=== PATIENT | female | born 1955 | race Caucasian/White ===

== ENCOUNTER 2017-09-29 12:27 | Inpatient (IN) ==
[2017-09-29] MEDS ORDERED: 0.9 % Sodium Chloride 1,000 ML IVC ONE (12:58)
[2017-09-29] MEDS ORDERED: methylPREDNISolone 125 MG/2 ML VIAL IVP ONE (12:58)
[2017-09-29] MEDS ORDERED: Ipratropium/Albuterol Neb 3 ML ONE (12:59)
--- NOTE | 2017-09-29 13:05 | Emergency Department Note ---
Disposition Clinical Impression: COPD exacerbation Lung cancer Qualifiers: Laterality: unspecified laterality Lung location: unspecified part of lung Qualified Code(s): C34.90 - Malignant neoplasm of unspecified part of unspecified bronchus or lung Disposition: Admitted As Inpatient Condition: Fair Referrals: NONE,PCP [Primary Care Provider] - Osei Tinsley [Family Provider] - Forms: ED Satisfaction Letter Time of Disposition: 14:39 Arrhythmia/Palpitations HPI - General Chief Complaint: ED Arrhythmia/Palpitations Stated Complaint: Tachy Time Seen by Provider: 09/29/17 12:39 Source: patient, family Mode of arrival: ambulatory Limitations: no limitations Nursing Notes Reviewed: Yes Vital Signs Reviewed: Yes - History of Present Illness HPI Narrative: 62-year-old female with history of chronic smoking as well as recent diagnosis of lung cancer presents for evaluation of tachycardia. Patient states she has been having worsening dyspnea. Patient was recently diagnosed with lung cancer yesterday. She had recent hospitalization. Patient denies any chest pain. Patient states that she has not been needing oxygen. Patient denies any fevers or cough. Patient denies any abdominal pain. No nausea vomiting. - Related Data Home Medications Medication Instructions Recorded Confirmed Fluticasone/Vilanterol [Breo 1 puff IH DAILY 09/20/17 09/28/17 Ellipta 200-25 Mcg INH] Mometasone/Formoterol [Dulera 200 2 puff IH BID 09/20/17 09/28/17 Mcg/5 Mcg Inhaler] Previous Rx's Medication Instructions Recorded Budesonide/Formoterol 160/4.5 2 puff IH BIDR #1 inhaler 09/24/17 [Symbicort 160/4.5] Ipratropium/Albuterol Sulfate 1 puff IH QID PRN #1 mist.inhal 09/24/17 [Combivent Respimat Inhal [place]] Losartan/HCTZ [Hyzaar 50-12.5 2 each PO DAILY #60 tablet 09/24/17 Tablet] levoFLOXacin [Levaquin] 750 mg PO DAILY #4 tablet 09/24/17 predniSONE [PredniSONE] 40 mg PO DAILY #5 tablet 09/24/17 Nicotine Patch [Nicoderm] 1 patch TD DAILY #21 patch.[id number] 09/28/17 Allergies Allergy/AdvReac Type Severity Reaction Status Date / Time No Known Allergies Allergy Verified 09/19/17 15:28 All systems ED: reviewed and negative except as stated. Constitutional: Reports: as per HPI. Denies: fever Eyes: Reports: as per HPI ENT ED: Reports: as per HPI Cardiovascular: Reports: as per HPI. Denies: chest pain Respiratory: Reports: as per HPI, dyspnea. Denies: cough Gastrointestinal: Reports: as per HPI. Denies: abdominal pain, nausea, vomiting Genitourinary: Reports: as per HPI Musculoskeletal: Reports: as per HPI Integumentary: Reports: as per HPI Neurological: Reports: as per HPI Psychiatric: Reports: as per HPI Endocrine: Reports: as per HPI Hematological/Lymphatic: Reports: as per HPI Past Medical History - Past Medical History Medical history: Reports: cancer, COPD, hypertension, other Psychiatric history: Reports: anxiety, depression - Social History Smoking Status: Current every day smoker Smokeless Tobacco Status: No Alcohol use: Reports: none Drug use: Reports: none Physical Exam - General Limitations: no limitations General appearance: alert, in distress, cachectic - Head Head exam: atraumatic, normocephalic, normal inspection - Eye Eye exam: Present: normal appearance, PERRL, EOMI - ENT ENT exam: normal exam, mucous membranes moist - Neck Neck exam: Present: normal inspection, trachea midline - Chest Chest inspection: Present: normal inspection, symmetric chest wall rise - Respiratory Respiratory exam: Present: respiratory distress, accessory muscle use (Pursed lip breathing), prolonged expiratory phase, other (Diffusely decreased breath sounds) - Cardiovascular Cardiovascular exam: Present: normal rhythm, tachycardia. Absent: systolic murmur - Abdominal Exam Abdominal exam: Present: soft, Non-Tender - Extremities Exam Extremities exam: Present: normal inspection. Absent: pedal edema - Back Exam Back exam: Present: normal inspection, full ROM. Absent: tenderness - Neurological Exam Neurological exam: Present: alert, oriented X3 - Skin Skin exam: Present: warm, dry, intact, normal color Course Course Narrative: Patient seen and examined. Patient appears to be in moderate distress with respiratory breathing. The patient had diffusely decreased lung sounds. Patient received several nebs as well as steroids. Patient also placed on BiPAP. Patient's tachycardia likely related to her increased work of breathing. However PE has not been officially ruled out. Patient will need to get a CTA of the chest. - Reevaluation(s) Reevaluation #1: Patient does have increased air movement. Time: 14:38 Reevaluation #2: She did have a blood gas prior to BiPAP placement and was reviewed and she was normal. Time: 14:44 Vital Signs Temperature 98.4 F 09/29/17 12:32 Pulse Rate 123 09/29/17 12:32 Respiratory Rate 18 09/29/17 12:32 Blood Pressure 132/71 09/29/17 12:32 O2 Sat by Pulse Oximetry 97 09/29/17 12:32 Temperature 98.4 F 09/29/17 12:32 Pulse Rate 123 09/29/17 13:35 Respiratory Rate 26 09/29/17 15:10 Blood Pressure 138/67 09/29/17 15:10 O2 Sat by Pulse Oximetry 98 09/29/17 15:10 Oxygen Delivery Oxygen Delivery Aerosol Mask Arrhythmia/Palpitations - [facility] Narrative Medical decision making narrative: 62-year-old female with history of tobacco use and COPD presents for tachycardia and dyspnea. Patient was recently diagnosed with lung cancer yesterday. Patient is not currently undergoing chemotherapy or modalities. Patient notes worsening dyspnea. Patient did have increased work of breathing. Patient will be admitted to the hospital service for further motion monitoring. Patient will need a CT of the chest to rule out pulmonary PE. - Lab Data Lab results reviewed: Yes I reviewed the patient's lab results. Result diagrams: 09/29/17 12:50 09/29/17 12:50 Lab Results 09/29/17 09/29/17 09/29/17 Range/Units 12:50 12:50 12:50 WBC 7.4 (4.3-11.1) K/mcL RBC 4.96 (3.82-4.97) M/mcL Hgb 15.5 H (11.5-15.4) g/dL Hct 46.2 H (35.3-44.9) % MCV 93.1 (83.0-100.0) fL MCH 31.3 (28.0-33.3) pg MCHC 33.5 (31.6-35.5) g/dL RDW 13.3 (11.5-14.5) % Plt Count 342 (140-400) K/mcL MPV 8.7 L (9.4-12.4) fL Seg Neutrophils % 66.0 % Lymphocytes % 16.0 % Monocytes % 18.0 % Neutrophils # 4.9 (1.6-8.9) K/mcL Lymphocytes # 1.2 (0.6-4.6) K/mcL Monocytes # 1.3 (0.0-1.3) K/mcL Platelet Estimate Normal (Normal) Target Cells 1+ A (Not Present) ABG pH (7.32-7.45) pH Units ABG pCO2 (35-45) mmHg ABG pO2 (85-104) mmHg ABG HCO3 (21-27) mEq/L ABG Total CO2 (20-26) mEq/L ABG O2 Saturation (95-98) % ABG Base Excess (-2 to 3) mEq/L O2 Delivery Device Inspired O2 (1-15=lpm [id number]=%) Sodium 133 L (136-145) mEq/L Potassium 3.6 (3.5-5.1) mEq/L Chloride 93 L (98-107) mEq/L Carbon Dioxide 32 H (23-29) mEq/L BUN 17 (8-23) mg/dL Creatinine 0.51 L (0.60-1.20) mg/dL Est GFR ( Amer) > 60 (> 60) Est GFR (Non-Af Amer) > 60 (> 60) BUN/Creatinine Ratio 33 H (6-26) Glucose 90 (70-105) mg/dL Calculated Osmolality 277 L (280-300) Calcium 9.1 (8.6-10.3) mg/dL Troponin I (< 0.04) ng/mL B-Natriuretic Peptide 23 (Less than 100) pg/mL 09/29/17 09/29/17 Range/Units 12:50 14:41 WBC (4.3-11.1) K/mcL RBC (3.82-4.97) M/mcL Hgb (11.5-15.4) g/dL Hct (35.3-44.9) % MCV (83.0-100.0) fL MCH (28.0-33.3) pg MCHC (31.6-35.5) g/dL RDW (11.5-14.5) % Plt Count (140-400) K/mcL MPV (9.4-12.4) fL Seg Neutrophils % % Lymphocytes % % Monocytes % % Neutrophils # (1.6-8.9) K/mcL Lymphocytes # (0.6-4.6) K/mcL Monocytes # (0.0-1.3) K/mcL Platelet Estimate (Normal) Target Cells (Not Present) ABG pH 7.38 (7.32-7.45) pH Units ABG pCO2 44 (35-45) mmHg ABG pO2 81 L (85-104) mmHg ABG HCO3 26 (21-27) mEq/L ABG Total CO2 27 H (20-26) mEq/L ABG O2 Saturation 96 (95-98) % ABG Base Excess 1 (-2 to 3) mEq/L O2 Delivery Device Cannula Inspired O2 2.0 (1-15=lpm [id number]=%) Sodium (136-145) mEq/L Potassium (3.5-5.1) mEq/L Chloride (98-107) mEq/L Carbon Dioxide (23-29) mEq/L BUN (8-23) mg/dL Creatinine (0.60-1.20) mg/dL Est GFR ( Amer) (> 60) Est GFR (Non-Af Amer) (> 60) BUN/Creatinine Ratio (6-26) Glucose (70-105) mg/dL Calculated Osmolality (280-300) Calcium (8.6-10.3) mg/dL Troponin I < 0.03 (< 0.04) ng/mL B-Natriuretic Peptide (Less than 100) pg/mL - Radiology Data Radiology results reviewed: Yes I reviewed the patient's radiology results. Chest X-Ray 09/29/17 12:57 IMPRESSION: No significant interval change. Stable opacities in the upper lobes. The larger opacity in the right upper lobe was recently biopsied. D/ / Akin Frias MD / Akin Frias MD Interpreting Provider: Akin Frias MD - EKG Data EKG attestation: Yes I reviewed and interpreted this EKG. EKG shows normal: sinus rhythm Rate: tachycardia Rhythm: NSR [place]/QRS: normal P waves: FAY T wave inversions noted in: aVR, v1, v2 Interpretation: no acute changes S.B.A.R. - Laureen Situation: Demographics Background: Presenting Complaint Assessment: Vital Signs, Course and respsone to treatment, Patient/Family Expectation Recommendation: Barrier(s) to disposition, Recommendation based on pending studies, treatments, or consults Laureen Report Given to: Dr. Shirley Garduno Repor Time: 14:35 Attestation Statement - Attestation Attestation: I examined this patient and my medical decision-making was reviewed with the Resident Physician. I agree with the documented findings, disposition and treatment plan as described except to the extent set forth below. 62-year-old female sent emergency room by her short goods drier due to rapid heart rate. She was recently found to have a pulmonary nodule and diagnosed with adenocarcinoma of the right upper lobe. She had biopsy confirming this.. She was being seen by the short goods drier today and had increased heart rate prompting them to send her to the ED. She denies any pain. She tries to deny dyspnea but person with her reports she has had increasing dyspnea over the recent days. No fevers or chills. Cachectic female who appears much more than her stated age. He is membranes are dry. Neck is supple. No JVD. Chest with markedly diminished breath sounds all lung gonzales. No focal rhonchi. Cardiac exam is tachycardic, regular. Chest wall is nontender. Abdomen soft nondistended nontender. Extremities warm and dry without edema. No calf tenderness. She was given sequential DuoNeb treatments with some improvement of her respiratory rate. However, the tachycardia today. She was sent for CT of her chest which was negative for PE or focal infiltrate. She was ultimately placed on BiPAP with further improvement and admitted to the hospital. The high probability of a clinically significant, sudden or life threatening deterioration of the [cardiopulmonary] system(s) required my full and direct attention, intervention and personal management. The aggregate critical care time was [15] minutes. This time is in addition to time spent performing reported procedures but includes the following: [x] Data Review and interpretation [x] Patient assessment and monitoring of vital signs [x] Documentation [x] Medication orders and management
[2017-09-29 13:08] LABS: Hematocrit 46.2 % (35.3-44.9); Hemoglobin 15.5 g/dL (11.5-15.4); Mean Corpuscular HGB Conc 33.5 g/dL (31.6-35.5); Mean Corpuscular Hemoglobin 31.3 pg (28.0-33.3); Mean Corpuscular Volume 93.1 fL (83.0-100.0); Mean Platelet Volume 8.7 fL (9.4-12.4); Platelet Count 342 K/mcL (140-400); Red Blood Count 4.96 M/mcL (3.82-4.97); Red Cell Distribution Width 13.3 % (11.5-14.5)
[2017-09-29] MEDS: Ipratropium/Albuterol Neb 3 ML IH ONE ×2 (13:19→13:30)
[2017-09-29 13:43] LABS: BUN/Creatinine Ratio 33 (6-26); Blood Urea Nitrogen 17 mg/dL (8-23); Calcium 9.1 mg/dL (8.6-10.3); Carbon Dioxide 32 mEq/L (23-29); Chloride 93 mEq/L (98-107); Glucose 90 mg/dL (70-105); Osmolality,Calculated 277 (280-300); Potassium 3.6 mEq/L (3.5-5.1); Sodium 133 mEq/L (136-145); eGFR For African Americans > 60 (> 60); eGFR For Non-African Americans > 60 (> 60)
[2017-09-29 13:55] LABS: Lymphocytes # 1.2 K/mcL (0.6-4.6); Monocytes # 1.3 K/mcL (0.0-1.3); Neutrophils # 4.9 K/mcL (1.6-8.9); Platelet Estimate Normal (Normal)
[2017-09-29 13:56] LABS: Target Cells 1+ (Not Present)
[2017-09-29] MEDS ORDERED: Albuterol 2.5 MG/3 ML NEBULIZER IH ONE (14:16)
[2017-09-29 14:46] LABS: ABG Base Excess 1 mEq/L (-2 to 3); ABG HCO3 26 mEq/L (21-27); ABG Oxygen Saturation 96 % (95-98); ABG PCO2 44 mmHg (35-45); ABG PH 7.38 pH Units (7.32-7.45); ABG PO2 81 mmHg (85-104); ABG TCO2 27 mEq/L (20-26)
[2017-09-29] MEDS ORDERED: Naloxone 0.4 MG/ML INJ IVP PRN (16:30)
--- NOTE | 2017-09-29 17:13 | Internal Med History&Physical ---
<Maryan Bui - Last Filed: 09/29/17 17:01> Date of Encounter: 09/29/17 Time of Encounter: 17:02 Assessment and Plan (1) COPD with acute exacerbation Status: Acute 62-year-old female presented to the emergency room with acute exacerbation of COPD with underlying right lung mass positive for cancer. She is a smoker who recently stopped. 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 Oseguera is a 62 year old female who was sent to the ER for evaluation of tachycardia and shortness of breath from the pulmonologists office. The patient was admitted here from 09/19/17-09/24/17 with exacerbation of COPD. The patient is sitting up on the stretcher with respiratory treatment on board. Patient is having difficulty speaking in full sentences. Her significant other is at the bedside and supplied a lot of information regarding history of present illness. The patient was recently diagnosed with a right lung cancerous lesion. She also has a history of COPD / emphysema and hepatitis B. She was seen at the [facility] yesterday. A 6 minute walk test was performed there and she was ordered home oxygen which has not been delivered. She was at the pulmonologists office today for hospitial f/u and when she started to walk her heart rate was found to be in the high 130s and she became profoundly short of breath, so was sent to the ED. She also has a nebulizer ordered but it has not been delivered. The patient is a cigarette smoker and has smoked most of her life. She quit . She denies chest pain, fever , chills, syncope, abdominal pain, changes in bowel or bladder. She states she weighs approximately 58 pounds and has been losing weight steadily over the past several months. Her significant other states that she has not been eating very much. I spoke with Dr. Watson and the ER physician regarding disposition. Discussed with the patient and her significant other. They are in agreement with the plan of admission. Discussed CODE STATUS. The patient states that she wants to try all treatments but does not want to be on a ventilator or machine long-term. Past Med Surg Social Fam HX - Past Medical History Source: patient Medical history: cancer, COPD, hypertension, other Psychiatric history: anxiety, depression - Social History Smoking Status: Current every day smoker Smokeless Tobacco Status: No Alcohol use: none Drug use: none Occupational status: retired Current living situation: Home - Independent, With Family Activity Level: Independent ambulation - Additional Family History Additional family history: Dad at age 42 with an accident, brother from cirrhosis of the liver, mother alive at age 78 with some cardiac problems Internal Medicine - H&P: Meds Fluticasone/Vilanterol [Breo Ellipta 200-25 Mcg INH] 1 puff IH DAILY 09/20/17 [ History] Budesonide/Formoterol 160/4.5 [Symbicort 160/4.5] 2 puff IH BIDR #1 inhaler 02/04 [Rx] Ipratropium/Albuterol Sulfate [Combivent Respimat Inhal [place]] 1 puff IH QID PRN #1 mist.inhal 09/24/17 [Rx] Losartan/HCTZ [Hyzaar 50-12.5 Tablet] 2 each PO DAILY #60 tablet 09/24/17 [Rx] Nicotine Patch [Nicoderm] 14 mg TD DAILY 09/29/17 [History] Ipratropium/Albuterol Neb [Duoneb] 3 ml IH K2HCVYM PRN #50 inhsol 10/01/17 [Rx] Melatonin 1.5 mg PO HS PRN #30 tablet 10/01/17 [Rx] levoFLOXacin [Levaquin] 750 mg PO DAILY #5 tablet 10/01/17 [Rx] predniSONE [PredniSONE] 40 mg PO DAILY #18 tablet 10/01/17 [Rx] 3 Allergy/AdvReac Type Severity Reaction Status Date / Time No Known Allergies Allergy Verified 09/19/17 15:28 All Systems PM: A 10-system review of systems was performed and is negative for pertinent findings except as documented above in the HPI. - Constitutional Constitutional: fatigue, weakness, weight loss, no chills, no fever(s), no night sweats - EENT Eyes: no change in vision, no discharge, no pain, no photophobia Ears: no ear discharge, no ear pain, no tinnitus Nose, mouth and throat: no dysphagia, no nasal discharge, no neck pain, no sore throat - Cardiovascular Cardiovascular ROS IM: dyspnea, dyspnea on exertion, other (Tachycardia), no chest pain, no diaphoresis, no lightheadedness, no palpitations, no syncope - Respiratory Respiratory: dyspnea, wheezing, other (Unable to speak in full sentences, accessory muscle use), no cough, no excessive phlegm production - Gastrointestinal Gastrointestinal: no abdominal pain, no diarrhea, no hematemesis, no hematochezia, no melena, no nausea, no vomiting - Genitourinary Genitourinary: no change in urinary stream, no dysuria, no flank pain, no hematuria - Musculoskeletal Musculoskeletal ROS IM: no numbness, no tingling - Integumentary Integumentary IM: no rash, no unusual bruising - Neurological Neurological ROS: no confusion, no convulsions, no focal weakness, no numbness, no tingling, no tremor(s) - Hematologic/Lymphatic Hematologic/Lymphatic: no easy bruising - Constitutional Vitals: Temp Pulse Resp BP Pulse Ox 98.4 F 123 26 138/67 98 09/29/17 12:32 09/29/17 13:35 09/29/17 15:10 09/29/17 15:10 09/29/17 15:10 Internal Med - H&P Results - Labs CBC & Chem 7: 09/29/17 12:50 09/29/17 12:50 <Ciro Watson P - Last Filed: 10/03/17 19:19> Date of Encounter: 10/03/17 Internal Medicine - H&P: [facility] History of present illness: Ms. Oseguera is a 62 year old female Past Med Surg Social Fam HX - Family History Father Name: Nilay Oseguera Family Member Ethnicity: Unknown Living Status: Cause of : Heart Attack Hx Family Cardiac Disorders: Yes All Systems PM: A 10-system review of systems was performed and is negative for pertinent findings except as documented above in the HPI. - Constitutional Vitals: Temp Pulse Resp BP Pulse Ox 98.8 F 111 17 138/71 99 10/01/17 11:03 10/01/17 11:03 10/01/17 11:24 10/01/17 11:03 10/01/17 11:24 Internal Med - H&P Results - Labs CBC & Chem 7: 09/30/17 00:23 09/30/17 00:23 - Attending Attestation I examined this patient and my medical decision-making was reviewed with the Resident Physician/SOCIAL SERVICES MANAGER. I agree with the documented findings, disposition and treatment plan as described except to the extent set forth below.
[2017-09-29] MEDS: Ipratropium/Albuterol Neb 3 ML IH SCH ×2 (19:59→23:49)
[2017-09-29] MEDS: MethylPREDNISolone 40 MG/ML VIAL IVP SCH (23:45)
[2017-09-30] MEDS ORDERED: Melatonin 3 MG TABLET PO PRN (00:22)
[2017-09-30 00:31] LABS: Hematocrit 36.8 % (35.3-44.9); Mean Corpuscular HGB Conc 34.2 g/dL (31.6-35.5); Mean Corpuscular Hemoglobin 32.1 pg (28.0-33.3); Mean Corpuscular Volume 93.9 fL (83.0-100.0); Mean Platelet Volume 8.5 fL (9.4-12.4); Platelet Count 303 K/mcL (140-400); Red Blood Count 3.92 M/mcL (3.82-4.97); Red Cell Distribution Width 13.2 % (11.5-14.5)
[2017-09-30 00:39] LABS: INR 0.9
[2017-09-30 00:41] LABS: Activated Partial Thrombo Time 29.6 Seconds (26.0-36.0)
[2017-09-30 00:43] LABS: Hemoglobin 12.6 g/dL (11.5-15.4)
[2017-09-30 00:45] LABS: BUN/Creatinine Ratio 32 (6-26); Blood Urea Nitrogen 14 mg/dL (8-23); Calcium 8.7 mg/dL (8.6-10.3); Carbon Dioxide 30 mEq/L (23-29); Chloride 97 mEq/L (98-107); Chol/HDL Ratio 2.5 (0-4.9); Cholesterol 158 mg/dL (< 200); Glucose 131 mg/dL (70-105); HDL Cholesterol 63 mg/dL (40-59); LDL Cholesterol,Calculated 82 mg/dL (0-99); Osmolality,Calculated 278 (280-300); Phosphorous 3.1 mg/dL (2.7-4.5); Potassium 3.8 mEq/L (3.5-5.1); Sodium 133 mEq/L (136-145); Triglycerides 67 mg/dL (< 150); eGFR For African Americans > 60 (> 60); eGFR For Non-African Americans > 60 (> 60)
[2017-09-30] MEDS: Ipratropium/Albuterol Neb 3 ML IH SCH ×6 (04:00→22:59)
[2017-09-30] MEDS ORDERED: Levofloxacin 750 MG/150 ML 750 MG/150 ML BAG IVPB SCH (09:00)
[2017-09-30] MEDS: MethylPREDNISolone 40 MG/ML VIAL IVP SCH (09:06)
[2017-09-30] MEDS: levoFLOXacin 750 MG TABLET PO SCH (09:06)
[2017-09-30] MEDS: Losartan/HCTZ 50-12.5 TABLET PO SCH (09:06)
[2017-09-30] MEDS: Nicotine 14 MG PATCH.TD24 TD SCH (09:07)
--- NOTE | 2017-09-30 10:20 | Internal Med Progress Note ---
<Kishore Granados - Last Filed: 09/30/17 15:29> Date of Encounter: 09/30/17 Time of Encounter: 10:18 - Assessment and plan (1) Acute respiratory failure with hypoxia Current Visit: Yes Status: Acute Assessment and plan: Insetting of COPD exacerbation, adenocarcinoma of the lung Patient on Levaquin, by mouth steroids Continue DuoNeb's. chest CT negative for any acute abnormalities. At this point patient is comfortable sitting in bed. She is on 3 L of supplemental oxygen. She states her shortness of breath is at baseline. Also contributing to her hypoxia is the patient did not have oxygen set up at home early enough and therefore had to come to the hospital. (2) COPD exacerbation Current Visit: Yes Status: Acute Assessment and plan: Plan as above. (3) Lung cancer Current Visit: Yes Status: Acute Assessment and plan: Right upper lobe adenocarcinoma recently diagnosed. Patient is a 80 pounds in the past one year. Following with oncology. Plan with PET scan outpatient. Qualifiers: Laterality: right Lung location: upper lobe of lung Qualified Code(s): C34.11 - Malignant neoplasm of upper lobe, right bronchus or lung (4) DVT prophylaxis Current Visit: Yes Status: Acute Assessment and plan: Lovenox subcutaneous (5) HTN (hypertension) Current Visit: Yes Status: Chronic Assessment and plan: Controlled continue home medication. Qualifiers: Hypertension type: essential hypertension Qualified Code(s): I10 - Essential (primary) hypertension (6) Tobacco abuse Current Visit: Yes Status: Chronic Assessment and plan: Patient continues to smoke cigarettes. Reports she is unable to quit. Patient educated on benefits of smoking cessation. (7) Severe protein-calorie malnutrition Current Visit: Yes Status: Acute Assessment and plan: Secondary to lung cancer. As well as COPD. We will continue regular diet. Consult nutrition. - Subjective Interval history: patient lying comfortably in bed. SOb at baseline. Reports finishing majority of dinner last night. Denies chest pain, palpitations, abdominal pain, N/V, leg swelling. Reports 80 pound weight loss in the past year. Reports poor appetite at home due to sob and not having O2 set up at home. - Constitutional Vitals: Temp Pulse Resp BP Pulse Ox 97.7 F 71 18 128/62 95 09/30/17 07:59 09/30/17 07:59 09/30/17 08:14 09/30/17 07:59 09/30/17 08:14 - Other Additional findings: General: Cachectic female, without distress Heart: Regular rate and rhythm with no murmur Lungs: Diminished bilaterally. Absent wheezing Abdomen: Soft nontender, nondistended positive bowel sounds Skin: warm and dry Extremities: Absent pedal edema, Neuro: Alert oriented 3 Vascular: Pedal and radial pulses 2 out of 4 Internal Medicine: Result - Labs CBC & Chem 7: 09/30/17 00:23 09/30/17 00:23 Labs: Short CBC 09/30/17 Range/Units 00:23 WBC 4.7 (4.3-11.1) K/mcL Hgb 12.6 D (11.5-15.4) g/dL Hct 36.8 (35.3-44.9) % Plt Count 303 (140-400) K/mcL BMP 09/30/17 00:23 Sodium 133 L Potassium 3.8 Chloride 97 L Carbon Dioxide 30 H BUN 14 Creatinine 0.44 L Glucose 131 H Calcium 8.7 Cardiac Enzymes 09/30/17 09/30/17 Range/Units 00:23 06:21 Troponin I < 0.03 < 0.03 (< 0.04) ng/mL - ABG Interpretation ABG results: ABG ABG pH 7.38 pH Units (7.32-7.45) 09/29/17 14:41 ABG pCO2 44 mmHg (35-45) 09/29/17 14:41 ABG pO2 81 mmHg (85-104) L 09/29/17 14:41 ABG O2 Saturation 96 % (95-98) 09/29/17 14:41 PT/INR, D-dimer PT 10.0 Seconds (9.4-12.1) 09/30/17 00:23 Consult Discharge Plan - Plan Referrals: NONE,PCP [Primary Care Provider] - Osei Tinsley [Family Provider] - <Patric Brooke - Last Filed: 09/30/17 16:09> Date of Encounter: 09/30/17 - Constitutional Vitals: Temp Pulse Resp BP Pulse Ox 98 F 109 17 115/59 97 09/30/17 15:17 09/30/17 15:17 09/30/17 15:17 09/30/17 15:17 09/30/17 15:17 Internal Medicine: Result - Labs CBC & Chem 7: 09/30/17 00:23 09/30/17 00:23 Labs: Short CBC 09/30/17 Range/Units 00:23 WBC 4.7 (4.3-11.1) K/mcL Hgb 12.6 D (11.5-15.4) g/dL Hct 36.8 (35.3-44.9) % Plt Count 303 (140-400) K/mcL BMP 09/30/17 00:23 Sodium 133 L Potassium 3.8 Chloride 97 L Carbon Dioxide 30 H BUN 14 Creatinine 0.44 L Glucose 131 H Calcium 8.7 Cardiac Enzymes 09/30/17 09/30/17 Range/Units 00:23 06:21 Troponin I < 0.03 < 0.03 (< 0.04) ng/mL - ABG Interpretation ABG results: ABG ABG pH 7.38 pH Units (7.32-7.45) 09/29/17 14:41 ABG pCO2 44 mmHg (35-45) 09/29/17 14:41 ABG pO2 81 mmHg (85-104) L 09/29/17 14:41 ABG O2 Saturation 96 % (95-98) 09/29/17 14:41 PT/INR, D-dimer PT 10.0 Seconds (9.4-12.1) 09/30/17 00:23 - Attending Attestation I examined this patient and my medical decision-making was reviewed with the Resident Physician on 09/30/17. I agree with the documented findings, disposition and treatment plan as described except to the extent set forth below. Seen and examined at the bedside. 63-year-old female was referred to the emergency room from the pulmonology clinic for tachycardia. The patient reports she also had shortness of breath. Patient states she qualified for home oxygen yesterday and has home oxygen. Provide. She has a medical history of chronic respiratory failure secondary to COPD, lung cancer, and hypertension. She continues to smoke. On examination she is severely malnourished, cachectic, BMI is 13, she has bilateral transmitted breath sounds with no specific rhonchi or crackles she is not wheezing. Heart sounds S1-S2 only. Abdomen is soft and nontender in all quadrants. Labs and imaging are within normal limits. CTA shows no pulmonary embolism, no infiltrates noted. Lung malignancy. 7. Plan of care consult nutrition for severe malnutrition, continue current care. Rest of details as in the resident physician's documentation
[2017-09-30] MEDS: predniSONE 20 MG TABLET PO SCH (15:50)
--- NOTE | 2017-09-30 15:56 | Electrocardiograph Report ---
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
[2017-10-01] MEDS: Ipratropium/Albuterol Neb 3 ML IH SCH ×3 (04:37→11:24)
[2017-10-01] MEDS ORDERED: *HR* Enoxaparin 40 MG/0.4 ML SYRINGE SQ SCH (06:00)
[2017-10-01] MEDS: predniSONE 20 MG TABLET PO SCH (10:02)
[2017-10-01] MEDS: Losartan/HCTZ 50-12.5 TABLET PO SCH (10:02)
[2017-10-01] MEDS: levoFLOXacin 750 MG TABLET PO SCH (10:02)
--- NOTE | 2017-10-01 10:02 | Discharge Summary ---
<Patric Brooke T - Last Filed: 10/01/17 13:49> Date of Encounter: 10/01/17 - Discharge Medications Prescriptions: Ipratropium/Albuterol Neb [Duoneb] 3 ml IH [id number] PRN #50 inhsol PRN Reason: Shortness Of Breath levoFLOXacin [Levaquin] 750 mg PO DAILY #5 tablet Melatonin 1.5 mg PO HS PRN #30 tablet PRN Reason: Insomnia predniSONE [PredniSONE] 40 mg PO DAILY #18 tablet Home Medications: Fluticasone/Vilanterol [Breo Ellipta 200-25 Mcg INH] 1 puff IH DAILY 09/20/17 [ History] Budesonide/Formoterol 160/4.5 [Symbicort 160/4.5] 2 puff IH BIDR #1 inhaler 02/04 [Rx] Ipratropium/Albuterol Sulfate [Combivent Respimat Inhal [place]] 1 puff IH QID PRN #1 mist.inhal 09/24/17 [Rx] Losartan/HCTZ [Hyzaar 50-12.5 Tablet] 2 each PO DAILY #60 tablet 09/24/17 [Rx] Nicotine Patch [Nicoderm] 14 mg TD DAILY 09/29/17 [History] Ipratropium/Albuterol Neb [Duoneb] 3 ml IH [id number] PRN #50 inhsol 10/01/17 [Rx] Melatonin 1.5 mg PO HS PRN #30 tablet 10/01/17 [Rx] levoFLOXacin [Levaquin] 750 mg PO DAILY #5 tablet 10/01/17 [Rx] predniSONE [PredniSONE] 40 mg PO DAILY #18 tablet 10/01/17 [Rx] Allergies/Adverse Reactions: 3 Allergy/AdvReac Type Severity Reaction Status Date / Time No Known Allergies Allergy Verified 09/19/17 15:28 Date of admission: 09/29/17 19:05 Primary care physician: PCP NONE - Patient Status Disposition: Home, Self-Care Condition: Fair - Discharge Instructions Instructions: Acute Respiratory Distress Syndrome (DC), Chronic Obstructive Pulmonary Disease (DC) Follow Up With: NONE,PCP [Primary Care Provider] - (PATIENT HAS A NEW PATIENT REFERAL OUT TO A NEW PCP. PATIENT IS JUST WAITING ON A RETURN CALL BACK) Additional Instructions: Please return to emergency room if worsening shortness of breath, development fever, or development of chest pain Please continue all home medications as well as home oxygen as needed Take all medications as prescribed: Levaquin 750 mg daily for 5 days Melatonin 1.5 mg at night if needed for sleep Prednisone as directed: 40 mg daily for 5 days 20 mg daily for 5 days 10 mg daily for 5 days Follow-up with your PCP, [facility]stone [facility]isher, and oncologist in 1-2 weeks Hospital course: Ms. Oseguera is a 62 year old female - Time Spent with Patient Total time spent providing and/or coordinating discharge services: - Constitutional Vitals: Temp Pulse Resp BP Pulse Ox 98.8 F 111 17 138/71 99 10/01/17 11:03 10/01/17 11:03 10/01/17 11:24 10/01/17 11:03 10/01/17 11:24 - Attending Attestation I examined this patient and my medical decision-making was reviewed with the Resident Physician on 10/01/17. I agree with the documented findings, disposition and treatment plan as described except to the extent set forth below. Seen and examined at the bedside. 63-year-old female who was recently discharged and referred to the emergency room from the pulmonology clinic for tachycardia. The patient reports she also had shortness of breath. Patient states she qualified for home oxygen and waiting confirmation of arrangement for home O2. She has a medical history of chronic respiratory failure secondary to COPD, lung cancer, and hypertension. She continues to smoke. She denies new complains today and states her shortness of breath is chronic, she has been reviewed by flight physician, added supplements to her oral intake. She has mild wheezing on exam, vitals are stable, labs are unremarkable, CTA showed no pulmonary embolism, no infiltrates noted. Lung malignancy. Plan of care is to discharge patient home , with home O2, nebulizer, nebs, prednisone taper and levoflox. Continue other home meds, extensive education on smoking, declines NRT Rest of details as in the resident physician's documentation <Steven Castrejon - Last Filed: 10/01/17 14:07> Date of Encounter: 10/01/17 Time of Encounter: 09:30 - Discharge Diagnosis (1) Acute respiratory failure with hypoxia Priority: Primary Status: Acute (2) COPD exacerbation Priority: Primary Status: Acute (3) Lung cancer Priority: Primary Status: Acute Qualifiers: Laterality: right Lung location: upper lobe of lung Qualified Code(s): C34.11 - Malignant neoplasm of upper lobe, right bronchus or lung (4) Severe protein-calorie malnutrition Priority: Primary Status: Acute (5) Tobacco abuse Priority: Primary Status: Chronic (6) HTN (hypertension) Priority: Primary Status: Chronic Qualifiers: Hypertension type: essential hypertension Qualified Code(s): I10 - Essential (primary) hypertension (7) DVT prophylaxis Priority: Secondary Status: Acute Date of admission: 09/29/17 19:05 Primary care physician: PCP NONE Discharging clinician: Steven Castrejon Anticipated date of discharge: 10/01/17 - Patient Status Overall status at discharge: patient is back to baseline - Diet and Activity Activity: increase activity as tolerated, wear oxygen at all times Diet: advance to your usual diet Interval History: Patient reports doing well today, and states she is ready to go home. She denies any new concerns/complaints Hospital course: Ms. 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 The patient had been in the hospital for roughly 1 week between 09/19/17 and 09/24/17 having been treated for acute exacerbation of COPD at that time. She was followed up with [facility] where she underwent a 6 minute walk test, during which she became significantly short of breath and tachycardic and was sent to the emergency room. She had been ordered home oxygen and nebulizer, had been unable to use it as it had not been set up yet. She had been recently diagnosed with lung cancer is had a recent 50-60 pound weight loss. After admission to the hospital, patient was started on nebulizers, oxygen, and additional antibiotics for treatment of her acute exacerbation of COPD. She recovered readily with supportive treatment she was provided and as of 10/01/17 she is safe/stable for discharge as long as she is able to obtain home oxygen and nebulizer for supportive therapy at home. She underwent O2 qualification wall in the hospital and was found to need oxygen at home. Patient requires home oxygen and was qualified in the hospital for her current dose Time spent discussing smoking cessation with patient: 3 to 10 minutes - Time Spent with Patient Total time spent providing and/or coordinating discharge services: - Constitutional Vitals: Temp Pulse Resp BP Pulse Ox 98.3 F 91 18 149/73 100 10/01/17 07:27 10/01/17 07:27 10/01/17 07:50 10/01/17 07:27 10/01/17 07:50 Exam: General: Cooperative, pleasant, no acute distress, alert and oriented 3, answers questions appropriately, cachectic HEENT: Normocephalic, atraumatic, Conjunctiva pink, sclera anicteric, oral mucosa moist Respiratory: No accessory muscle usage, slight, diffuse wheezing present on auscultation Cardiovascular: Tachycardic, regular rhythm, S1 and S2 present, no murmurs/rubs/ gallops/clicks appreciated GI/abdominal: Nondistended, nontender, soft, normal bowel sounds, no peritoneal signs Extremities: No calf tenderness, noncyanotic, no pedal edema appreciated, warm, lower extremity pulses palpable and symmetrical Neurological: Alert and oriented 3, no facial droop, no focal deficits
[2017-10-01] MEDS: Nicotine 14 MG PATCH.TD24 TD SCH (10:03)
[2017-10-01 11:08] VITALS: BP 138/71
== END 2017-10-01 15:40 | disposition home or self-care (01) | DRG 140 ==
LOC: EMEROO 12:27 → 2ANU 12:27 → SUATTDRO 19:05 → 2ANU 09-30 12:20
PROVIDERS: ADMIT Internal Medicine; ATTEND Internal Medicine

== ENCOUNTER 2019-07-26 17:01 | Inpatient (IN) ==
[2019-07-26] MEDS ORDERED: Ipratropium/Albuterol Neb 3 ML IH ONE (17:23)
[2019-07-26] MEDS ORDERED: predniSONE 20 MG TABLET PO ONE (17:31)
[2019-07-26 17:40] LABS: Basophils # 0.1 K/mcL (0.0-0.2); Basophils % 0.7 %; Eosinophils # 0.2 K/mcL (0.0-0.6); Eosinophils % 1.3 %; Hematocrit 39.1 % (35.3-44.9); Hemoglobin 11.7 g/dL (11.5-15.4); Immature Granulocytes % 0.2 % (0-4); Lymphocytes # 2.1 K/mcL (0.6-4.6); Lymphocytes % 16.3 %; Mean Corpuscular HGB Conc 29.9 g/dL (31.6-35.5); Mean Corpuscular Hemoglobin 28.8 pg (28.0-33.3); Mean Corpuscular Volume 96.3 fL (83.0-100.0); Monocytes # 1.7 K/mcL (0.0-1.3); Monocytes % 13.5 %; Neutrophils # 8.5 K/mcL (1.6-8.9); Platelet Count 643 K/mcL (140-400); Red Blood Count 4.06 M/mcL (3.82-4.97); Red Cell Distribution Width 14.6 % (11.5-14.5); White Blood Count 12.6 K/mcL (4.3-11.1)
[2019-07-26 17:45] LABS: VBG Base Excess 16 mEq/L; VBG Chloride 97 mEq/L (98-107); VBG Glucose 111 mg/dl (65-95); VBG HCO3 45 mEq/L (21-27); VBG Oxygen Saturation 89 %; VBG PCO2 78 mmHg (41-51); VBG PH 7.37 pH Units (7.32-7.42); VBG PO2 62 mmHg (25-50); VBG Total CO2 47 mEq/L
[2019-07-26 18:01] LABS: BUN/Creatinine Ratio 41 (6-26); Blood Urea Nitrogen 13 mg/dL (8-23); Calcium 9.3 mg/dL (8.6-10.3); Carbon Dioxide 40 mEq/L (23-29); Chloride 95 mEq/L (98-107); Glucose 109 mg/dL (70-105); Osmolality,Calculated 295 (280-300); Potassium 3.5 mEq/L (3.5-5.1); Sodium 142 mEq/L (136-145); Troponin I 0.03 ng/mL (< 0.04); eGFR For African Americans > 60 (> 60); eGFR For Non-African Americans > 60 (> 60)
[2019-07-26] MEDS ORDERED: Azithromycin 500 MG in 0.9 % Sodium Chloride 250 ML IVPB ONE (18:15)
[2019-07-26] MEDS: *HR* Heparin 5,000 UNIT/ML VIAL SQ SCH (21:57)
[2019-07-26] MEDS: Ipratropium/Albuterol Neb 3 ML IH SCH (22:04)
[2019-07-26] MEDS: traZODone 50 MG TABLET PO SCH (23:15)
[2019-07-27] MEDS: MethylPREDNISolone 40 MG/ML VIAL IVP SCH ×3 (01:01→17:09)
[2019-07-27 02:21] LABS: Basophils % 0.3 %; Hematocrit 35.5 % (35.3-44.9); Hemoglobin 10.7 g/dL (11.5-15.4); Immature Granulocytes % 0.3 % (0-4); Lymphocytes % 8.1 %; Mean Corpuscular HGB Conc 30.1 g/dL (31.6-35.5); Mean Corpuscular Hemoglobin 28.6 pg (28.0-33.3); Mean Corpuscular Volume 94.9 fL (83.0-100.0); Mean Platelet Volume 9.3 fL (9.4-12.4); Monocytes % 4.2 %; Platelet Count 495 K/mcL (140-400); Red Blood Count 3.74 M/mcL (3.82-4.97); Red Cell Distribution Width 14.5 % (11.5-14.5); Segmented Neutrophils % 87.1 %; White Blood Count 7.8 K/mcL (4.3-11.1)
[2019-07-27 02:22] LABS: Lymphocytes # 0.6 K/mcL (0.6-4.6); Monocytes # 0.3 K/mcL (0.0-1.3); Neutrophils # 6.8 K/mcL (1.6-8.9)
[2019-07-27 02:22] LABS: VBG HCO3 44 mEq/L (21-27); VBG PCO2 78 mmHg (41-51); VBG PH 7.35 pH Units (7.32-7.42); VBG PO2 52 mmHg (25-50)
[2019-07-27 02:57] LABS: Alanine Aminotransferase 6 Units/L (7-52); Albumin 3.5 g/dL (3.5-5.7); Albumin/Globulin Ratio 1.1 (1.1-2.2); Alkaline Phosphatase 79 Units/L (34-104); Aspartate Amino Transferase 16 Units/L (13-39); BUN/Creatinine Ratio 31 (6-26); Bilirubin,Total 0.2 mg/dL (0.3-1.0); Blood Urea Nitrogen 12 mg/dL (8-23); Calcium 8.8 mg/dL (8.6-10.3); Carbon Dioxide 35 mEq/L (23-29); Chloride 98 mEq/L (98-107); Globulin 3.3 g/dL (2.4-3.5); Glucose 167 mg/dL (70-105); Osmolality,Calculated 292 (280-300); Potassium 4.3 mEq/L (3.5-5.1); Sodium 139 mEq/L (136-145); Total Protein 6.8 g/dL (6.4-8.9); eGFR For African Americans > 60 (> 60); eGFR For Non-African Americans > 60 (> 60)
[2019-07-27] MEDS: Ipratropium/Albuterol Neb 3 ML IH SCH (04:05)
[2019-07-27] MEDS: *HR* Heparin 5,000 UNIT/ML VIAL SQ SCH ×3 (06:08→21:47)
[2019-07-27 08:42] LABS: Adenovirus Not Detected (Not Detect); Bordetella Pertussis Not Detected (Not Detect); Chlamydophila pneumoniae Not Detected (Not Detect); Coronavirus 229E Not Detected (Not Detect); Coronavirus HKU1 Not Detected (Not Detect); Coronavirus NL63 Not Detected (Not Detect); Coronavirus OC43 Not Detected (Not Detect); Human Metapneumovirus Not Detected (Not Detect); Human Rhinovirus/Enterovirus Not Detected (Not Detect); Influenza A Subtype 2009 H1 Not Detected (Not Detect); Influenza A Untypeable Not Detected (Not Detect); Influenza B Not Detected (Not Detect); Mycoplasma pneumoniae Not Detected (Not Detect); Parainfluenza Virus 1 Not Detected (Not Detect); Parainfluenza Virus 2 Not Detected (Not Detect); Parainfluenza Virus 3 Not Detected (Not Detect); Parainfluenza Virus 4 Not Detected (Not Detect); Respiratory Syncytial Virus Not Detected (Not Detect)
[2019-07-27] MEDS: Nicotine 7 MG PATCH.TD24 TD SCH (08:55)
[2019-07-27] MEDS ORDERED: Azithromycin 500 MG in 0.9 % Sodium Chloride 250 ML IVPB SCH (09:00)
[2019-07-27] MEDS: Levalbuterol Neb 1.25 MG/3 ML IH SCH ×3 (10:14→21:30)
[2019-07-27] MEDS: Budesonide/Formoterol 160/4.5 1 PUFF INH IH SCH ×2 (10:14→21:30)
[2019-07-27] MEDS ORDERED: Levalbuterol Neb 1.25 MG/3 ML ONE (15:24)
[2019-07-27] MEDS ORDERED: MethylPREDNISolone 40 MG/ML VIAL IVP SCH (16:00)
[2019-07-27] MEDS: Azithromycin 500 MG in 0.9 % Sodium Chloride 250 ML IVPB SCH (17:08)
[2019-07-27] MEDS: traZODone 50 MG TABLET PO SCH ×2 (19:52→21:55)
[2019-07-28] MEDS: Levalbuterol Neb 1.25 MG/3 ML IH SCH ×4 (03:33→22:17)
[2019-07-28 04:35] LABS: BUN/Creatinine Ratio 47 (6-26); Blood Urea Nitrogen 17 mg/dL (8-23); Calcium 8.9 mg/dL (8.6-10.3); Carbon Dioxide 40 mEq/L (23-29); Chloride 97 mEq/L (98-107); Glucose 130 mg/dL (70-105); Osmolality,Calculated 295 (280-300); Potassium 4.1 mEq/L (3.5-5.1); Sodium 141 mEq/L (136-145); eGFR For African Americans > 60 (> 60); eGFR For Non-African Americans > 60 (> 60)
[2019-07-28] MEDS: *HR* Heparin 5,000 UNIT/ML VIAL SQ SCH ×3 (05:30→22:32)
[2019-07-28] MEDS: MethylPREDNISolone 40 MG/ML VIAL IVP SCH ×2 (05:31→17:44)
[2019-07-28] MEDS: Nicotine 7 MG PATCH.TD24 TD SCH (08:30)
[2019-07-28] MEDS: Budesonide/Formoterol 160/4.5 1 PUFF INH IH SCH ×2 (10:34→22:17)
[2019-07-28] MEDS ORDERED: Saline Nasal Spray 44 ML BOTTLE NS PRN (12:45)
[2019-07-28] MEDS: Azithromycin 500 MG in 0.9 % Sodium Chloride 250 ML IVPB SCH (17:45)
[2019-07-28] MEDS: traZODone 50 MG TABLET PO SCH (22:32)
[2019-07-29] MEDS: Levalbuterol Neb 1.25 MG/3 ML IH SCH ×4 (04:15→22:58)
[2019-07-29] MEDS: MethylPREDNISolone 40 MG/ML VIAL IVP SCH ×2 (06:02→17:40)
[2019-07-29] MEDS: *HR* Heparin 5,000 UNIT/ML VIAL SQ SCH (06:02)
[2019-07-29 08:04] LABS: BUN/Creatinine Ratio 36 (6-26); Blood Urea Nitrogen 13 mg/dL (8-23); Calcium 8.6 mg/dL (8.6-10.3); Carbon Dioxide 40 mEq/L (23-29); Chloride 95 mEq/L (98-107); Glucose 168 mg/dL (70-105); Osmolality,Calculated 294 (280-300); Potassium 3.6 mEq/L (3.5-5.1); Sodium 140 mEq/L (136-145); eGFR For African Americans > 60 (> 60); eGFR For Non-African Americans > 60 (> 60)
[2019-07-29] MEDS: Nicotine 7 MG PATCH.TD24 TD SCH (08:42)
[2019-07-29] MEDS: Budesonide/Formoterol 160/4.5 1 PUFF INH IH SCH ×2 (11:33→22:58)
[2019-07-29] MEDS: Azithromycin 500 MG in 0.9 % Sodium Chloride 250 ML IVPB SCH (17:40)
[2019-07-30] MEDS: traZODone 50 MG TABLET PO SCH ×2 (00:07→23:16)
[2019-07-30] MEDS: Levalbuterol Neb 1.25 MG/3 ML IH SCH ×4 (04:19→22:07)
[2019-07-30 05:40] LABS: BUN/Creatinine Ratio 32 (6-26); Blood Urea Nitrogen 12 mg/dL (8-23); Calcium 8.8 mg/dL (8.6-10.3); Carbon Dioxide 40 mEq/L (23-29); Chloride 96 mEq/L (98-107); Glucose 130 mg/dL (70-105); Osmolality,Calculated 292 (280-300); Potassium 3.9 mEq/L (3.5-5.1); Sodium 140 mEq/L (136-145); eGFR For African Americans > 60 (> 60); eGFR For Non-African Americans > 60 (> 60)
[2019-07-30] MEDS: MethylPREDNISolone 40 MG/ML VIAL IVP SCH ×2 (06:29→18:33)
[2019-07-30] MEDS: *HR* Enoxaparin 30 MG/0.3 ML SYRINGE SQ SCH (06:29)
[2019-07-30] MEDS: Nicotine 7 MG PATCH.TD24 TD SCH (10:47)
[2019-07-30] MEDS: Budesonide/Formoterol 160/4.5 1 PUFF INH IH SCH ×2 (10:59→22:07)
[2019-07-30] MEDS: Azithromycin 500 MG in 0.9 % Sodium Chloride 250 ML IVPB SCH (18:33)
[2019-07-31 01:15] LABS: BUN/Creatinine Ratio 51 (6-26); Blood Urea Nitrogen 18 mg/dL (8-23); Calcium 8.4 mg/dL (8.6-10.3); Carbon Dioxide 37 mEq/L (23-29); Chloride 95 mEq/L (98-107); Glucose 234 mg/dL (70-105); Osmolality,Calculated 293 (280-300); Potassium 4.1 mEq/L (3.5-5.1); Sodium 137 mEq/L (136-145); eGFR For African Americans > 60 (> 60); eGFR For Non-African Americans > 60 (> 60)
[2019-07-31] MEDS: Levalbuterol Neb 1.25 MG/3 ML IH SCH ×4 (03:53→22:20)
[2019-07-31] MEDS: *HR* Enoxaparin 30 MG/0.3 ML SYRINGE SQ SCH (05:49)
[2019-07-31] MEDS: MethylPREDNISolone 40 MG/ML VIAL IVP SCH (05:49)
[2019-07-31] MEDS: Nicotine 7 MG PATCH.TD24 TD SCH (10:01)
[2019-07-31] MEDS: Budesonide/Formoterol 160/4.5 1 PUFF INH IH SCH ×2 (10:43→22:20)
[2019-07-31] MEDS: predniSONE 20 MG TABLET PO SCH (15:19)
[2019-07-31] MEDS: traZODone 50 MG TABLET PO SCH (23:11)
[2019-08-01] MEDS: Levalbuterol Neb 1.25 MG/3 ML IH SCH ×6 (03:56→23:12)
[2019-08-01 05:07] LABS: BUN/Creatinine Ratio 50 (6-26); Blood Urea Nitrogen 14 mg/dL (8-23); Calcium 8.7 mg/dL (8.6-10.3); Carbon Dioxide 38 mEq/L (23-29); Chloride 98 mEq/L (98-107); Glucose 96 mg/dL (70-105); Osmolality,Calculated 290 (280-300); Sodium 140 mEq/L (136-145); eGFR For African Americans > 60 (> 60); eGFR For Non-African Americans > 60 (> 60)
[2019-08-01] MEDS: *HR* Rivaroxaban 10 MG TABLET PO SCH (05:07)
[2019-08-01] MEDS: predniSONE 20 MG TABLET PO SCH (08:33)
[2019-08-01] MEDS: Nicotine 7 MG PATCH.TD24 TD SCH (08:34)
[2019-08-01] MEDS: Budesonide/Formoterol 160/4.5 1 PUFF INH IH SCH ×2 (10:44→20:24)
[2019-08-01] MEDS ORDERED: *HR* Metoprolol 5 MG/5 ML VIAL IVP PRN (15:09)
[2019-08-01] MEDS: Ipratropium Neb 0.5 MG NEBULIZER IH SCH ×4 (15:35→23:12)
[2019-08-01] MEDS: traZODone 50 MG TABLET PO SCH (23:48)
[2019-08-02 01:40] LABS: BUN/Creatinine Ratio 45 (6-26); Blood Urea Nitrogen 22 mg/dL (8-23); Calcium 8.5 mg/dL (8.6-10.3); Carbon Dioxide 37 mEq/L (23-29); Chloride 95 mEq/L (98-107); Glucose 102 mg/dL (70-105); Osmolality,Calculated 288 (280-300); Potassium 3.9 mEq/L (3.5-5.1); Sodium 137 mEq/L (136-145); eGFR For African Americans > 60 (> 60); eGFR For Non-African Americans > 60 (> 60)
[2019-08-02] MEDS: Levalbuterol Neb 1.25 MG/3 ML IH SCH ×6 (03:41→23:02)
[2019-08-02] MEDS: Ipratropium Neb 0.5 MG NEBULIZER IH SCH ×6 (03:41→23:02)
[2019-08-02] MEDS: *HR* Rivaroxaban 10 MG TABLET PO SCH (04:57)
[2019-08-02] MEDS: Budesonide/Formoterol 160/4.5 1 PUFF INH IH SCH ×2 (07:08→20:12)
[2019-08-02] MEDS: predniSONE 20 MG TABLET PO SCH (09:20)
[2019-08-02] MEDS: Nicotine 7 MG PATCH.TD24 TD SCH (09:20)
[2019-08-02] MEDS: traZODone 50 MG TABLET PO SCH (22:31)
[2019-08-03 02:19] LABS: BUN/Creatinine Ratio 65 (6-26); Blood Urea Nitrogen 20 mg/dL (8-23); Calcium 8.5 mg/dL (8.6-10.3); Carbon Dioxide 37 mEq/L (23-29); Chloride 97 mEq/L (98-107); Glucose 105 mg/dL (70-105); Osmolality,Calculated 293 (280-300); Sodium 140 mEq/L (136-145); eGFR For African Americans > 60 (> 60); eGFR For Non-African Americans > 60 (> 60)
[2019-08-03] MEDS: Ipratropium Neb 0.5 MG NEBULIZER IH SCH ×4 (03:43→16:08)
[2019-08-03] MEDS: Levalbuterol Neb 1.25 MG/3 ML IH SCH ×4 (03:43→16:08)
[2019-08-03] MEDS: *HR* Rivaroxaban 10 MG TABLET PO SCH (05:59)
[2019-08-03] MEDS: Budesonide/Formoterol 160/4.5 1 PUFF INH IH SCH (07:22)
[2019-08-03 07:38] VITALS: BP 142/83
== END 2019-08-03 17:17 | disposition home health service (06) | DRG 190 ==
LOC: 2NENU 17:01 → EMEROOARM 17:01 → SUATTDRO 20:00 → 2NENU 20:14 → SUATTDRO 07-27 15:13
PROVIDERS: ADMIT Internal Medicine; ATTEND Internal Medicine